=== PATIENT | male | born 1995 | race Hispanic/Latino ===

== ENCOUNTER → 2018-10-27 14:42 | Outpatient (CLI) | payer OTHER, SELFPAY ==
[2018-10-27 20:54] LABS: Urine N gonorrhoeae NOT DETECTED
[2018-10-27 21:01] LABS: Urine Chlamydia NOT DETECTED
== END ==
PROVIDERS: Visit Provider Physician Assistant
DX: Z11.3 Encounter for screening for infections with a predominantly sexual mode of transmission (principal)
CPT/HCPCS: 87491; 87591

== ENCOUNTER → 2018-10-27 14:46 | Outpatient (CLI) | payer OTHER, SELFPAY ==
[2018-10-27 16:59] LABS: HIV 1 and 2 Antibody NEGATIVE (NEGATIVE); Hep C Virus Ab w/Reflex Quant NEGATIVE s/c (NEGATIVE)
[2018-10-29 22:23] LABS: RPR Screen Nonreactive (Nonreactive)
[2018-10-30 13:10] LABS: HSV 1 IgM Screen Negative (Negative); HSV 2 IgM Screen Negative (Negative)
[2018-10-30 14:58] LABS: Hepatitis B Core Antibody Nonreactive (Nonreactive)
== END ==
PROVIDERS: Visit Provider Physician Assistant
DX: Z11.3 Encounter for screening for infections with a predominantly sexual mode of transmission (principal)
CPT/HCPCS: 36415; 86592; 86694; 86703; 86704; 86803; 87491; 87591